=== PATIENT | male | born 1975 | race Caucasian/White ===

== ENCOUNTER 2022-07-23 11:46 | Emergency (ER) | payer SELFPAY ==
[2022-07-23] MEDS ORDERED: Aspirin 81 MG Tab.Chew PO ONE (12:29)
[2022-07-23] MEDS ORDERED: Sodium Chloride 0.9% 10 ML Syringe FLUSH PRN (12:29)
== END 2022-07-23 14:40 | disposition home or self-care (01) ==
LOC: JD.ED 11:46
DX: R07.89 Other chest pain (principal)
CPT/HCPCS: 36415; 71045; 80053; 84484; 85025; 85379; 93005; 99285; A9270; J3490; 93010; 99284